=== PATIENT | female | born 1990 | race Caucasian/White ===

== ENCOUNTER 2018-02-27 22:55 | Emergency (ER) | payer MEDICAID ==
[~2018-02-27] VITALS: Ht 160 cm; Wt 52.7 kg
[~2018-02-27 22:55] MED LIST: FERROUS SULFAT325 MG PO; MOTRIN600 MG PO; PERCOCET 5/3251 TA1 PO; PRENATAL COMPLE1 TAB PO
[2018-02-27 22:56] VITALS: Ht 160 cm; Wt 52.7 kg
[2018-02-27 23:29] LABS: BASOPHILS 0.2 % (0-2); EOSINOPHILS 4.3 % (0-7); HEMATOCRIT 41.1 % (36.0-48.0); HEMOGLOBIN 13.9 g/dL (12-16); IMMATURE GRANULOCYTES 0.4 % (0-5); LYMPHOCYTES 29.8 % (15-50); MCH 30.3 pg (26.0-34.0); MCHC 33.8 g/dL (31.0-37.0); MCV 89.7 fL (80.0-100.0); MEAN PLATELET VOLUME 9.7 fL (7.4-10.4); MONOCYTES 8.7 % (2-11); NEUTROPHILS 56.6 % (40-80); PLATELET COUNT 229 10x3/uL (130-400); RBC 4.58 10x6/uL (4.00-5.40); RDW 12.8 % (11.5-14.5); WBC 5.3 10x3/uL (4.8-10.8)
[2018-02-27 23:38] LABS: HCG SERUM NEGATIVE (NEGATIVE)
[2018-02-27 23:43] LABS: ALBUMIN 3.6 g/dL (3.4-5.0); ALKALINE PHOSPHATASE 90 U/L (46-116); ALT (SGPT) 20 U/L (10-68); BILIRUBIN - TOTAL 0.14 mg/dL (0.2-1.3); CALC OSMOLALITY 280 mosm/kg (275-300); CALCIUM 9.1 mg/dL (8.5-10.1); CARBON DIOXIDE 30.1 mmol/L (21.0-32.0); CHLORIDE - SERUM 104 mmol/L (98-107); CREATININE - SERUM 0.8 mg/dL (0.6-1.3); GLUCOSE 116 mg/dL (74-106); POTASSIUM - SERUM 3.9 mmol/L (3.5-5.1); PROTEIN - SERUM 6.8 g/dL (6.4-8.2); SODIUM 140 mmol/L (136-145); UREA NITROGEN 14 mg/dL (7-18); eGFR NON AFRICAN AMERICAN > 90 mL/min (90-120)
[2018-02-28] MEDS ORDERED: SKELAXIN800 MG PO (01:34)
[2018-02-28] MEDS ORDERED: NAPROSYN500 MG PO (01:34)
[2018-02-28 02:04] VITALS: BP 133/92
== END 2018-02-28 02:05 | disposition home or self-care (01) ==
LOC: D.ER 22:55
PROVIDERS: Family Medicine
DX: S16.1XXA Strain of muscle, fascia and tendon at neck level, initial encounter (principal); V43.62XA Car passenger injured in collision with other type car in traffic accident, initial encounter; Y93.89 Activity, other specified; Y92.410 Unspecified street and highway as the place of occurrence of the external cause; S09.90XA Unspecified injury of head, initial encounter; R68.84 Jaw pain; F17.200 Nicotine dependence, unspecified, uncomplicated

== ENCOUNTER 2019-01-04 20:47 | Emergency (ER) | payer MEDICAID ==
[~2019-01-04] VITALS: Ht 160 cm; Wt 54.5 kg
[~2019-01-04 20:47] MED LIST changes: +NAPROSYN500 MG PO; +SKELAXIN800 MG PO
[2019-01-04 21:09] VITALS: Ht 160 cm; Wt 54.5 kg
[2019-01-04 21:53] LABS: BASOPHILS 0.1 % (0-2); EOSINOPHILS 1.3 % (0-7); HEMATOCRIT 44.5 % (36.0-48.0); HEMOGLOBIN 15.5 g/dL (12-16); IMMATURE GRANULOCYTES 0.3 % (0-5); LYMPHOCYTES 15.7 % (15-50); MCH 31.2 pg (26.0-34.0); MCHC 34.8 g/dL (31.0-37.0); MCV 89.5 fL (80.0-100.0); MEAN PLATELET VOLUME 9.8 fL (7.4-10.4); MONOCYTES 4.6 % (2-11); PLATELET COUNT 203 10x3/uL (130-400); RBC 4.97 10x6/uL (4.00-5.40); RDW 12.7 % (11.5-14.5); WBC 6.7 10x3/uL (4.8-10.8)
[2019-01-04 22:13] LABS: ALBUMIN 3.9 g/dL (3.4-5.0); ALKALINE PHOSPHATASE 89 U/L (46-116); ALT (SGPT) 12 U/L (10-68); BILIRUBIN - TOTAL 0.48 mg/dL (0.2-1.3); CALC OSMOLALITY 275 mosm/kg (275-300); CALCIUM 8.7 mg/dL (8.5-10.1); CHLORIDE - SERUM 103 mmol/L (98-107); CREATININE - SERUM 0.7 mg/dL (0.6-1.3); GLUCOSE 85 mg/dL (74-106); PROTEIN - SERUM 7.5 g/dL (6.4-8.2); SODIUM 138 mmol/L (136-145); UREA NITROGEN 14 mg/dL (7-18); eGFR NON AFRICAN AMERICAN > 90 mL/min (90-120)
[2019-01-04 22:17] LABS: AMYLASE - SERUM 56 U/L (25-115); LIPASE 144 U/L (73-393)
[2019-01-04 22:18] LABS: TROPONIN-I < 0.017 ng/mL (0.000-0.060)
[2019-01-04] MEDS ORDERED: ZOFRAN4 MG PO (23:33)
[2019-01-05 00:25] VITALS: BP 112/80
== END 2019-01-05 00:25 | disposition home or self-care (01) ==
LOC: D.ER 20:47
PROVIDERS: Family Medicine
DX: A08.4 Viral intestinal infection, unspecified (principal); F17.210 Nicotine dependence, cigarettes, uncomplicated

== ENCOUNTER 2019-08-20 19:07 | Emergency (ER) | payer MEDICAID ==
[~2019-08-20] VITALS: Ht 160 cm; Wt 54.4 kg
[~2019-08-20 19:07] MED LIST changes: +ZOFRAN4 MG PO
[2019-08-20 19:10] VITALS: Ht 160 cm; Wt 54.4 kg
[2019-08-20 20:21] VITALS: BP 133/91
== END 2019-08-20 20:22 | disposition home or self-care (01) ==
LOC: D.ER 19:07
DX: N89.8 Other specified noninflammatory disorders of vagina (principal); Z20.2 Contact with and (suspected) exposure to infections with a predominantly sexual mode of transmission

== ENCOUNTER 2019-10-10 11:38 | Emergency (ER) | payer MEDICAID ==
[~2019-10-10] VITALS: Ht 160 cm; Wt 53.2 kg
[2019-10-10 11:55] VITALS: Ht 160 cm; Wt 53.2 kg
[2019-10-10] MEDS ORDERED: VOLTAREN75 MG PO (12:38)
[2019-10-10 12:54] VITALS: BP 124/73
== END 2019-10-10 12:59 | disposition home or self-care (01) ==
LOC: D.ER 11:38
DX: S69.91XA Unspecified injury of right wrist, hand and finger(s), initial encounter (principal); M79.641 Pain in right hand; Y04.8XXA Assault by other bodily force, initial encounter; Y93.9 Activity, unspecified; Y92.9 Unspecified place or not applicable

== ENCOUNTER 2019-12-13 23:26 | Emergency (ER) | payer MEDICAID ==
[~2019-12-13] VITALS: Ht 160 cm; Wt 52.3 kg
[~2019-12-13 23:26] MED LIST changes: +VOLTAREN75 MG PO
[2019-12-13 23:31] VITALS: Ht 160 cm; Wt 52.3 kg
[2019-12-13] MEDS ORDERED: PRENATAL (23:36)
[2019-12-13 23:53] LABS: HEMATOCRIT 39.6 % (36.0-48.0); HEMOGLOBIN 13.8 g/dL (12-16); LYMPHOCYTES 15.2 % (15-50); MCH 30.7 pg (26.0-34.0); MCHC 34.8 g/dL (31.0-37.0); MEAN PLATELET VOLUME 9.8 fL (7.4-10.4); NEUTROPHILS 78.9 % (40-80); RDW 12.4 % (11.5-14.5); WBC 13.1 10x3/uL (4.8-10.8)
[2019-12-13 23:54] LABS: PLATELET COUNT 260 10x3/uL (130-400)
[2019-12-13 23:55] LABS: HCG URINE POSITIVE (NEGATIVE)
[2019-12-14 00:02] LABS: CALC OSMOLALITY 271 mosm/kg (275-300); CARBON DIOXIDE 23.6 mmol/L (21.0-32.0); CHLORIDE - SERUM 103 mmol/L (98-107); CREATININE - SERUM 0.7 mg/dL (0.6-1.3); GLUCOSE 114 mg/dL (74-106); POTASSIUM - SERUM 3.6 mmol/L (3.5-5.1); SODIUM 136 mmol/L (136-145); UREA NITROGEN 11 mg/dL (7-18); eGFR NON AFRICAN AMERICAN > 90 mL/min (90-120)
[2019-12-14 00:05] LABS: BILIRUBIN NEGATIVE (NEGATIVE); GLUCOSE 100 mg/dL (NEGATIVE); KETONE NEGATIVE (NEGATIVE); NITRITE NEGATIVE (NEGATIVE); UROBILINOGEN NORMAL (NORMAL)
[2019-12-14 00:14] LABS: EPITHELIAL CELLS 0-5 /hpf (0-5); RED CELLS - URINE 0-5 /hpf (0-5); WHITE CELLS - URINE 0-5 /hpf (NEGATIVE)
[2019-12-14 00:15] LABS: BACTERIA MANY /hpf (NEGATIVE)
[2019-12-14 00:29] LABS: ALBUMIN 3.9 g/dL (3.4-5.0); ALKALINE PHOSPHATASE 97 U/L (30-120); ALT (SGPT) 15 U/L (10-68); AMYLASE - SERUM 70 U/L (25-115); BILIRUBIN - TOTAL 0.23 mg/dL (0.2-1.3); HCG - QUANTITATIVE (MATERNAL) 206113 mIU/mL; LIPASE 165 U/L (73-393); PROTEIN - SERUM 7.8 g/dL (6.4-8.2)
[2019-12-14 01:45] VITALS: BP 120/76
== END 2019-12-14 01:45 | disposition home or self-care (01) ==
LOC: D.ER 23:26
PROVIDERS: Emergency Medicine
DX: O20.0 Threatened abortion (principal); Z3A.01 Less than 8 weeks gestation of pregnancy; R10.31 Right lower quadrant pain

== ENCOUNTER 2020-03-13 20:43 | Outpatient (CLI) | payer MEDICAID ==
[2020-03-13 19:57] VITALS: BMI 20.4
[2020-03-13 21:42] LABS: UDS - AMPHET NEGATIVE QUAL (NEGATIVE); UDS - BARB NEGATIVE QUAL (NEGATIVE); UDS - BENZO NEGATIVE QUAL (NEGATIVE); UDS - COCAINE NEGATIVE QUAL (NEGATIVE); UDS - OPIATE NEGATIVE QUAL (NEGATIVE); UDS - PCP NEGATIVE QUAL (NEGATIVE); UDS - THC NEGATIVE QUAL (NEGATIVE)
[2020-03-13 21:48] LABS: BILIRUBIN NEGATIVE (NEGATIVE); KETONE NEGATIVE (NEGATIVE); NITRITE NEGATIVE (NEGATIVE); UROBILINOGEN NORMAL mg/dL (< 2)
[2020-03-13 21:49] LABS: BACTERIA MODERATE HPF (NONE SEEN); EPITHELIAL CELLS 0-5 /hpf (0-5); WHITE CELLS - URINE 0-5 HPF (0-4)
== END 2020-03-13 21:42 ==
LOC: D.LDO 20:43
PROVIDERS: ATTEND Obstetrics & Gynecology
DX: O26.899 Other specified pregnancy related conditions, unspecified trimester (principal); K62.5 Hemorrhage of anus and rectum

== ENCOUNTER → 2020-03-13 | Emergency (ER) | payer MEDICAID ==
[~2020-03-13] VITALS: Ht 160 cm; Wt 59.9 kg
[~2020-03-13] MED LIST changes: +PRENATAL
[2020-03-13 19:57] VITALS: BP 132/80; Ht 160 cm; Wt 59.9 kg
== END | disposition home or self-care (01) ==
LOC: D.ER 19:53
DX: K62.5 Hemorrhage of anus and rectum (principal)